=== PATIENT | female | born 1995 | race Caucasian/White ===

== ENCOUNTER 2021-08-03 12:12 | Emergency (ER) | payer SELFPAY ==
[2021-08-03] MEDS ORDERED: Alum Hydro/Mag Hydro/Simeth XS 15 ML, Metoclopramide 5 MG, Lidocaine 2% 5 ML PO ONE ×3 (12:32)
[2021-08-03] MEDS ORDERED: Sodium Chloride 0.9% 1,000 ML IV ONE (12:32)
[2021-08-03] MEDS ORDERED: Pantoprazole 80 MG in Sodium Chloride 0.9% 20 ML IVPUSH ONE (12:32)
[2021-08-03] MEDS ORDERED: Ondansetron 4 MG/2 ML SDV IVPUSH ONE (12:32)
--- NOTE | 2021-08-03 12:40 | EDM.PDOC ---
ED HPI GENERAL MEDICAL PROBLEM - General Chief Complaint: Abdominal Pain Stated Complaint: STOMACH PAIN Time Seen by Provider: 08/03/21 12:13 Source of Information: Reports: Patient History Limitations: Reports: No Limitations - History of Present Illness INITIAL COMMENTS - FREE TEXT/NARRATIVE: HISTORY AND PHYSICAL: History of present illness: Patient is an otherwise healthy 26-year-old female presents emergency room today with concern of upper abdominal pain, nausea, abdominal bloating/heartburn, and too numerous to count episodes of watery diarrhea since yesterday. Patient states that she did have Covid 19 on July 09 and states that she was placed on doxycycline at that time. Patient states that yesterday she began having significant upper abdominal pain surrounded by abdominal bloating and heartburn. Patient states starting today, she began having too numerous to count episodes of watery diarrhea and states that she has not been able to make it to the bathroom due to urgency of her diarrhea. Patient states that her diarrhea is more yellow in color and foul-smelling but denies any blood. Patient states that she began feeling dehydrated today and states that she did try drinking Pedialyte but feels like she cannot keep up with the amount of diarrhea she is having. Patient states that she did take a dose of ibuprofen last night at about 1 AM but has not taken any additional medication. Patient states that she does have an IUD so does not believe to be . Patient denies fever, chills, chest pain, shortness of breath, or cough. Denies headache, neck stiff ness, change in vision, syncope, or near syncope. Denies vomiting, or dysuria. Has not noted any blood in urine or stool. Patient has been eating and drinking appropriately. Review of systems: As per history of present illness and below otherwise all systems reviewed and negative. Past medical history: As per history of present illness and as reviewed below otherwise noncontri butory. Surgical history: As per history of present illness and as reviewed below otherwise noncontributory. Social history: See social history for further information Family history: As per history of present illness and as reviewed below otherwise noncontributory. Physical exam: General: Patient is alert, oriented, and in no acute distress. Patient laying comfortably on exam table. Patient is tachycardic 115's on exam, otherwise vitally stable and reviewed by me. HEENT: Atraumatic, normocephalic, pupils equal and reactive bilaterally, negative for conjunctival pallor or scleral icterus, mucous membranes moist, throat clear, neck supple, nontender, trachea midline. No drooling or trismus noted. No meningeal signs. No hot potato voice noted. Lungs: Clear to auscultation, breath sounds equal bilaterally, chest nontender. Heart: S1S2, regular rate and rhythm without overt murmur Abdomen: Soft, nondistended, nontender. Negative for masses or hepatosplenomegaly. Negative for costovertebral tenderness. Pelvis: Stable nontender. Genitourinary: Deferred. Rectal: Deferred. Skin: Intact, warm, dry. No lesions or rashes noted. Extremities: Atraumatic, negative for cords or calf pain. Neurovascular unremarkable. Neuro: Awake, alert, oriented. Cranial nerves II through XII unremarkable. Cerebellum unremarkable. Motor and sensory unremarkable throughout. Exam nonfocal. Medical Decision Making: Patient is an otherwise healthy 26-year-old female presents emergency room today with concern of upper abdominal pain, diarrhea, heartburn, and bloating since yesterday. Upon arrival to the ED, patient is tachycardic 115's on exam, otherwise vitally stable. Will obtain IV access, obtain basic lab work, hCG, provide NS bolus and reassess patient. Mild derangements of lab work today unremarkable. hCG negative. Urinalysis clear for infection. C. difficile toxin negative. Remainder of stool studies pending at this time. Abdominal pelvic CT scan shows no acute findings. All incidental findings today of imaging discussed with patient. Patient's mild tachycardia did improve to 80 bpm prior to therapeutics given today in the emergency room. Reevaluation of patient, she remains vitally stable and comfortable throughout stay in ED. Strict return precautions thoroughly discussed with patient. Discussed importance for follow-up with a primary care provider. Voices understanding and is agreeable to plan of care. Denies any further questions or concerns at this time. Diagnostics: CBC, CMP, UA, lipase, serum hcg, Abd/Pelvic CT w cont, Ova & Parasite, Cdiff, stool culture / shiga Therapeutics: NS, Zofran, GI cocktail, Protonix Prescription: None Impression: Diarrhea Abdominal pain, epigastric Plan: 1. Encourage small but frequent sips of fluid to prevent dehydration. 2. You can alternate ibuprofen and Tylenol as directed for pain and discomfort. 3. Follow-up with a primary care provider as discussed. Return to the ED as needed and as discussed. Definitive disposition and diagnosis as appropriate pending reevaluation and review of above. Treatments GAS SYSTEM OPERATOR: Reports: NSAIDS, Other (see below) Other Treatments GAS SYSTEM OPERATOR: ibuprofen at 0100 abdomen Pain Score (Numeric/FACES): 8 - Related Data Allergies Allergy/AdvReac Type Severity Reaction Status Date / Time Penicillins Allergy Shortness Verified 08/03/21 12:20 of Breath Home Meds: Home Meds . [No Known Home Meds] 08/03/21 [History] Past Medical History HEENT History: Reports: None Cardiovascular History: Reports: None Respiratory History: Reports: None Gastrointestinal History: Reports: None Genitourinary History: Reports: None FIRE PATROLLER History: Reports: None Musculoskeletal History: Reports: None Neurological History: Reports: None Psychiatric History: Reports: None Endocrine/Metabolic History: Reports: Other (See Below) Other Endocrine/Metabolic History: prediabetic Hematologic History: Reports: None Immunologic History: Reports: None Oncologic (Cancer) History: Reports: None Dermatologic History: Reports: None - Infectious Disease History Infectious Disease History: Reports: None - Past Surgical History Head Surgeries/Procedures: Reports: None HEENT Surgical History: Reports: Tonsillectomy Social & Family History - Family History Family Medical History: No Pertinent Family History - Tobacco Use Tobacco Use Status *Q: Former Tobacco User Used Tobacco, but Quit: Yes Month/Year Tobacco Last Used: 07/09/21 - Caffeine Use Caffeine Use: Reports: None - Recreational Drug Use Recreational Drug Use: No ED ROS GENERAL - Review of Systems Review Of Systems: Comprehensive ROS is negative, except as noted in HPI. ED EXAM, GENERAL - Physical Exam Exam: See Below (see dictation) Course - Vital Signs Last Recorded V/S: Last Vital Signs Temp 98.1 F 08/03/21 14:23 Pulse 99 08/03/21 14:23 Resp 16 08/03/21 14:23 BP 89/62 L 08/03/21 14:23 Pulse Ox 98 08/03/21 14:23 - Orders/Labs/Meds Orders: Active Orders 24 hr Category Date Time Status OVA & PARASITES BY IMMUNOASSAY [MREF] Stat Lab 08/03/21 13:10 Received STOOL CULTURE/SHIGA TOXIN [MREF] Stat Lab 08/03/21 13:10 Received Labs: Laboratory Tests 08/03/21 08/03/21 08/03/21 Range/Units 12:40 12:40 12:40 WBC 9.90 (4.0-11.0) K/uL RBC 4.57 (4.30-5.90) M/uL Hgb 14.2 (12.0-16.0) g/dL Hct 41.8 (36.0-46.0) % MCV 91.5 (80.0-98.0) fL MCH 31.1 (27.0-32.0) pg MCHC 34.0 (31.0-37.0) g/dL RDW Std Deviation 42.0 (28.0-62.0) fl RDW Coeff of Kathy 13 (11.0-15.0) % Plt Count 285 (150-400) K/uL MPV 10.80 (7.40-12.00) fL Neut % (Auto) 81.1 H (48.0-80.0) % Lymph % (Auto) 8.0 L (16.0-40.0) % Conway % (Auto) 9.7 (0.0-15.0) % Eos % (Auto) 1.1 (0.0-7.0) % Baso % (Auto) 0.1 (0.0-1.5) % Neut # (Auto) 8.0 H (1.4-5.7) K/uL Lymph # (Auto) 0.8 (0.6-2.4) K/uL Conway # (Auto) 1.0 H (0.0-0.8) K/uL Eos # (Auto) 0.1 (0.0-0.7) K/uL Baso # (Auto) 0.0 (0.0-0.1) K/uL Nucleated RBC % 0.0 /100WBC Nucleated RBCs # 0 K/uL Sodium 137 (136-145) mmol/L Potassium 4.0 (3.5-5.1) mmol/L Chloride 100 (98-107) mmol/L Carbon Dioxide 25.2 (21.0-32.0) mmol/L BUN 7 (7.0-18.0) mg/dL Creatinine 0.7 (0.6-1.0) mg/dL Est Cr Clr Drug Dosing 118.43 mL/min Estimated GFR (MDRD) > 60.0 ml/min Glucose 117 H (74-106) mg/dL Calcium 9.0 (8.5-10.1) mg/dL Total Bilirubin 0.7 (0.2-1.0) mg/dL AST 21 (15-37) IU/L ALT 38 (14-63) IU/L Alkaline Phosphatase 94 (46-116) U/L Total Protein 7.9 (6.4-8.2) g/dL Albumin 3.1 L (3.4-5.0) g/dL Globulin 4.8 H (2.6-4.0) g/dL Albumin/Globulin Ratio 0.7 L (0.9-1.6) Lipase 69 L (73-393) U/L HCG, Qual NEGATIVE (NEG) Urine Color Urine Appearance Urine pH (5.0-8.0) Ur Specific Lockhart (1.001-1.035) Urine Protein (NEGATIVE) mg/dL Urine Glucose (UA) (NEGATIVE) mg/dL Urine Ketones (NEGATIVE) mg/dL Urine Occult Blood (NEGATIVE) Urine Nitrite (NEGATIVE) Urine Bilirubin (NEGATIVE) Urine Urobilinogen (<2.0) EU/dL Ur Leukocyte Esterase (NEGATIVE) 08/03/21 Range/Units 13:10 WBC (4.0-11.0) K/uL RBC (4.30-5.90) M/uL Hgb (12.0-16.0) g/dL Hct (36.0-46.0) % MCV (80.0-98.0) fL MCH (27.0-32.0) pg MCHC (31.0-37.0) g/dL RDW Std Deviation (28.0-62.0) fl RDW Coeff of Kathy (11.0-15.0) % Plt Count (150-400) K/uL MPV (7.40-12.00) fL Neut % (Auto) (48.0-80.0) % Lymph % (Auto) (16.0-40.0) % Conway % (Auto) (0.0-15.0) % Eos % (Auto) (0.0-7.0) % Baso % (Auto) (0.0-1.5) % Neut # (Auto) (1.4-5.7) K/uL Lymph # (Auto) (0.6-2.4) K/uL Conway # (Auto) (0.0-0.8) K/uL Eos # (Auto) (0.0-0.7) K/uL Baso # (Auto) (0.0-0.1) K/uL Nucleated RBC % /100WBC Nucleated RBCs # K/uL Sodium (136-145) mmol/L Potassium (3.5-5.1) mmol/L Chloride (98-107) mmol/L Carbon Dioxide (21.0-32.0) mmol/L BUN (7.0-18.0) mg/dL Creatinine (0.6-1.0) mg/dL Est Cr Clr Drug Dosing mL/min Estimated GFR (MDRD) ml/min Glucose (74-106) mg/dL Calcium (8.5-10.1) mg/dL Total Bilirubin (0.2-1.0) mg/dL AST (15-37) IU/L ALT (14-63) IU/L Alkaline Phosphatase (46-116) U/L Total Protein (6.4-8.2) g/dL Albumin (3.4-5.0) g/dL Globulin (2.6-4.0) g/dL Albumin/Globulin Ratio (0.9-1.6) Lipase (73-393) U/L HCG, Qual (NEG) Urine Color YELLOW Urine Appearance CLEAR Urine pH 5.5 (5.0-8.0) Ur Specific Lockhart 1.025 (1.001-1.035) Urine Protein NEGATIVE (NEGATIVE) mg/dL Urine Glucose (UA) NEGATIVE (NEGATIVE) mg/dL Urine Ketones NEGATIVE (NEGATIVE) mg/dL Urine Occult Blood NEGATIVE (NEGATIVE) Urine Nitrite NEGATIVE (NEGATIVE) Urine Bilirubin NEGATIVE (NEGATIVE) Urine Urobilinogen 0.2 (<2.0) EU/dL Ur Leukocyte Esterase NEGATIVE (NEGATIVE) Meds: Medications Discontinued Medications Generic Name Dose Route Start Last Admin Trade Name Freq PRN Reason Stop Dose Admin Alum Lima/Mag Lima/Simeth XS 0 ml 08/03/21 12:32 08/03/21 12:45 15 ml/ Metoclopramide HCl 5 PO 08/03/21 12:33 1 each mg/ Lidocaine HCl 5 ml ONETIME ONE Administration Sodium Chloride 1,000 mls @ 999 mls/hr 08/03/21 12:32 08/03/21 12:44 Normal Saline IV 08/03/21 13:32 999 mls/hr BOLUS ONE Administration Pantoprazole Sodium 80 mg/ 20 mls @ 420 mls/hr 08/03/21 12:32 08/03/21 12:45 Sodium Chloride IVPUSH 08/03/21 12:34 420 mls/hr ONETIME ONE Administration Iopamidol 100 ml 08/03/21 13:45 08/03/21 13:50 Iopamidol 755 Mg/Ml 500 Ml Multipack Bottle IVPUSH 08/03/21 13:46 100 ml ONETIME STA Administration Ondansetron HCl 4 mg 08/03/21 12:32 08/03/21 12:45 Ondansetron 4 Mg/2 Ml Sdv IVPUSH 08/03/21 12:33 4 mg ONETIME ONE Administration Departure - Departure Time of Disposition: 14:18 Disposition: Home, Self-Care 01 Clinical Impression: Diarrhea Qualifiers: Diarrhea type: unspecified type Qualified Code(s): R19.7 - Diarrhea, unspecified Abdominal pain Qualifiers: Abdominal location: epigastric Qualified Code(s): R10.13 - Epigastric pain - Discharge Information Instructions: Dehydration, Adult, [id number], Diarrhea, Adult, [id number] Referrals: Leo Buitrago MD [Primary Care Provider] - Forms: ED Department Discharge Additional Instructions: The following information is given to patients seen in the emergency department who are being discharged to home. This information is to outline your options for follow-up care. We provide all patients seen in our emergency department with a follow-up referral. The need for follow-up, as well as the timing and circumstances, are variable depending upon the specifics of your emergency department visit. If you don't have a primary care physician on staff, we will provide you with a referral. We always advise you to contact your personal physician following an emergency department visit to inform them of the circumstance of the visit and for follow-up with them and/or the need for any referrals to a consulting specialist. The emergency department will also refer you to a specialist when appropriate. This referral assures that you have the opportunity for follow-up care with a specialist. All of these measure are taken in an effort to provide you with optimal care, which includes your follow-up. Under all circumstances we always encourage you to contact your private physician who remains a resource for coordinating your care. When calling for follow-up care, please make the office aware that this follow-up is from your recent emergency room visit. If for any reason you are refused follow-up, please contact the [facility] Emergency Department at and asked to speak to the emergency department charge nurse. [facility] [address] [place] [id number] [facility] [address] [place] [id number] 1. Encourage small but frequent sips of fluid to prevent dehydration. 2. You can alternate ibuprofen and Tylenol as directed for pain and discomfort. 3. Follow-up with a primary care provider as discussed. Return to the ED as needed and as discussed. Sepsis Event Note (ED) - Evaluation Sepsis Screening Result: No Definite Risk - Focused Exam Vital Signs: Vital Signs Temp Pulse Resp BP Pulse Ox 08/03/21 14:23 98.1 F 99 16 89/62 L 98 08/03/21 13:23 92 16 102/63 98 08/03/21 12:21 98.3 F 112 H 16 105/78 95 - My Orders Last 24 Hours: My Active Orders 08/03/21 13:10 OVA & PARASITES BY IMMUNOASSAY [MREF] Stat STOOL CULTURE/SHIGA TOXIN [MREF] Stat - Assessment/Plan Last 24 Hours: My Active Orders 08/03/21 13:10 OVA & PARASITES BY IMMUNOASSAY [MREF] Stat STOOL CULTURE/SHIGA TOXIN [MREF] Stat
[2021-08-03 13:14] LABS: BLOOD UREA NITROGEN,BUN 7 mg/dL (7.0-18.0); CARBON DIOXIDE,CO2 25.2 mmol/L (21.0-32.0); CHLORIDE,CL 100 mmol/L (98-107); GLUCOSE RANDOM 117 mg/dL (74-106); LIPASE 69 U/L (73-393); SODIUM,NA 137 mmol/L (136-145)
[2021-08-03] MEDS ORDERED: Iopamidol 755 MG/ML 500 ML Multipack Bottle IVPUSH STA (13:45)
--- NOTE | 2021-08-03 14:14 | CT ---
Indication: Upper abdominal pain. Technique: Multiple contiguous axial images were obtained from the thoracic inlet through the upper abdomen after the intravenous administration 100 cc Isovue 370. Please note that all CT scans at this facility use dose modulation, iterative reconstruction, and/or weight-based dosing when appropriate to reduce radiation dose to as low as reasonably achievable. Comparison: None Findings: Scar atelectasis is identified in the lingula, right middle lobe, anterior aspect of the right lower lobe. The heart is normal in size. No pericardial effusion is identified. The liver, gallbladder, spleen, pancreas, adrenals, and kidneys are normal. No intrahepatic biliary ductal dilatation is identified. No hydronephrosis is identified. In the pelvis, an IUD is identified within the uterus. The bladder is normal. The small and large bowel are normal in caliber. No free fluid or free air is identified within the abdomen or pelvis. The aorta is normal in caliber. No free fluid or free air is identified within the abdomen or pelvis. No lytic or blastic lesions of the spine are identified. Impression: No acute findings. Please note that all CT scans at this facility use dose modulation, iterative reconstruction, and/or weight-based dosing when appropriate to reduce radiation dose to as low as reasonably achievable. Dictated by Gail Ash MD @ 08/03/2021 2:12:57 PM (Electronically Signed)
== END 2021-08-03 14:26 | disposition home or self-care (01) ==
LOC: MW.ED 12:12
DX: R10.13 Epigastric pain (principal); R19.7 Diarrhea, unspecified; Z88.0 Allergy status to penicillin; Z86.16 Personal history of COVID-19; Z87.891 Personal history of nicotine dependence
CPT/HCPCS: 36415; 74177; 80053; 81003; 83690; 84703; 85025; 87045; 87046; 87324; 87328; 87329; 87449; 87899; 96374; 96375; 99284; A9270; C9113; J2405; J7030; Q9967

== ENCOUNTER 2021-10-12 10:07 | Emergency (ER) | payer BC ==
--- NOTE | 2021-10-12 10:22 | EDM.PDOC ---
ED HPI GENERAL MEDICAL PROBLEM - General Chief Complaint: Lower Extremity Injury/Pain Stated Complaint: R ANKLE PAIN Time Seen by Provider: 10/12/21 10:10 - History of Present Illness INITIAL COMMENTS - FREE TEXT/NARRATIVE: History of present illness: [] About 5 AM the patient got up to go to the bathroom and twisted her right ankle. She said it gave out. She has pain in the lateral right ankle. It is 9/10 in severity of sharp pain when she moves it. When she does not move it it is better. It happened a year ago and she never came for x-ray or further evaluation. It got better on its own. Patient denies any other injury. She denies . Review of systems: As per history of present illness and below otherwise all systems reviewed and negative. Past medical history: As per history of present illness and as reviewed below otherwise noncontributory. Surgical history: As per history of present illness and as reviewed below otherwise noncontributory. Social history: No reported history of drug or alcohol abuse. Family history: As per history of present illness and as reviewed below otherwise noncontributory. Physical exam: Constitutional - well developed, well-nourished and in no acute distress HEENT - normocephalic, no evidence of trauma - external nose and mouth normal - no mass in neck and no JVD - mucosae moist EYES - full EOM, PERRL, no icterus - no evidence of inflammation, injection, or drainage Respiratory - no respiratory distress, equal bilateral expansion Vascular-capillary refill intact in the distal right lower extremity. Musculoskeletal tender right lateral malleolus and right lateral ankle ligaments. Otherwise no gross deformity of long bones or joints - no tenderness, swelling or edema Neurologic - Alert and oriented times four - CN II-XII grossly intact - motor sensory and coordination symmetrically normal Psychiatric - appropriate mood and affect with normal thought content Hematologic - No petechiae or purpura - mucosa appropriate color and sclera not pale - normal nail bed color and refill Integument - no rash or evidence of trauma - normal turgor Diagnostics: [] Therapeutics: [] Impression: [] Plan: [] Definitive disposition and diagnosis as appropriate pending reevaluation and review of above. right ankle Pain Score (Numeric/FACES): 8 - Related Data Allergies Allergy/AdvReac Type Severity Reaction Status Date / Time Penicillins Allergy Shortness Verified 10/12/21 10:15 of Breath Home Meds: Home Meds . [No Known Home Meds] 08/03/21 [History] Past Medical History HEENT History: Reports: None Cardiovascular History: Reports: None Respiratory History: Reports: None Gastrointestinal History: Reports: None Genitourinary History: Reports: None DOCUMENT COORDINATOR History: Reports: None Musculoskeletal History: Reports: None Neurological History: Reports: None Psychiatric History: Reports: None Endocrine/Metabolic History: Reports: Other (See Below) Other Endocrine/Metabolic History: prediabetic Hematologic History: Reports: None Immunologic History: Reports: None Oncologic (Cancer) History: Reports: None Dermatologic History: Reports: None - Infectious Disease History Infectious Disease History: Reports: None - Past Surgical History Head Surgeries/Procedures: Reports: None HEENT Surgical History: Reports: Tonsillectomy Social & Family History - Family History Family Medical History: No Pertinent Family History - Caffeine Use Caffeine Use: Reports: None Review of Systems - Review of Systems Review Of Systems: Comprehensive ROS is negative, except as noted in HPI. ED EXAM, GENERAL - Physical Exam Exam: See Below Free Text/Narrative:: My physical exam is in the HPI Course - Vital Signs Text/Narrative:: DME for discharge walking boot ordered for 1 week to prevent further ankle ligament damage because of the sprain of the right ankle Last Recorded V/S: Last Vital Signs Temp 36.4 C 10/12/21 10:16 Pulse 112 H 10/12/21 10:16 Resp 16 10/12/21 10:16 BP 111/78 10/12/21 10:16 Pulse Ox 96 10/12/21 10:16 - Orders/Labs/Meds Orders: Active Orders 24 hr Category Date Time Status Ankle Min 3V Rt [CR] Stat Exams 10/12/21 10:20 Taken DME for Discharge [COMM] Stat Oth 10/12/21 10:49 Ordered Departure - Departure Time of Disposition: 10:50 Disposition: Home, Self-Care 01 Condition: Good Clinical Impression: Sprain of unspecified ligament of right ankle, initial encounter - Discharge Information Instructions: Ankle Sprain, [id number] Forms: ED Department Discharge Additional Instructions: Rest ice elevate. Return if worse. [facility] Professional Building [address] [place] [address], [address] [place] [id number] The following information is given to patients seen in the emergency department who are being discharged to home. This information is to outline your options for follow-up care. We provide all patients seen in our emergency department with a follow-up referral. The need for follow-up, as well as the timing and circumstances, are variable depending upon the specifics of your emergency department visit. If you don't have a primary care physician on staff, we will provide you with a referral. We always advise you to contact your personal physician following an emergency department visit to inform them of the circumstance of the visit and for follow-up with them and/or the need for any referrals to a consulting specialist. The emergency department will also refer you to a specialist when appropriate. This referral assures that you have the opportunity for follow-up care with a specialist. All of these measure are taken in an effort to provide you with optimal care, which includes your follow-up. Under all circumstances we always encourage you to contact your private physician who remains a resource for coordinating your care. When calling for follow-up care, please make the office aware that this follow-up is from your recent emergency room visit. If for any reason you are refused follow-up, please contact the [facility] Emergency Department at and asked to speak to the emergency department charge nurse. Sepsis Event Note (ED) - Evaluation Sepsis Screening Result: No Definite Risk - Focused Exam Vital Signs: Vital Signs Temp Pulse Resp BP Pulse Ox 10/12/21 10:16 36.4 C 112 H 16 111/78 96 - My Orders Last 24 Hours: My Active Orders 10/12/21 10:20 Ankle Min 3V Rt [CR] Stat 10/12/21 10:49 DME for Discharge [COMM] Stat - Assessment/Plan Last 24 Hours: My Active Orders 10/12/21 10:20 Ankle Min 3V Rt [CR] Stat 10/12/21 10:49 DME for Discharge [COMM] Stat
--- NOTE | 2021-10-12 10:54 | CR ---
INDICATION: Right ankle pain. TECHNIQUE: Three views of the right ankle. COMPARISON: None. FINDINGS: No soft tissue swelling, fracture, joint space narrowing or other abnormality. IMPRESSION: Negative right ankle. Dictated by Torsten Aguirre MD @ 10/12/2021 10:54:21 AM (Electronically Signed)
== END 2021-10-12 11:25 | disposition home or self-care (01) ==
LOC: MW.ED 10:07
DX: S93.401A Sprain of unspecified ligament of right ankle, initial encounter (principal); Z88.0 Allergy status to penicillin; X50.1XXA Overexertion from prolonged static or awkward postures, initial encounter
CPT/HCPCS: 73610-26-RT; 73610-RT; 99283-25

== ENCOUNTER 2022-08-09 22:22 | Emergency (ER) | payer BC | END 2022-08-10 00:33 | disposition home or self-care (01) | LOC: MW.ED 22:22 | DX: R10.31 Right lower quadrant pain (principal); Z88.0 Allergy status to penicillin; Z79.899 Other long term (current) drug therapy | CPT/HCPCS: 74176; 74176-26; 81001; 81025; 99284 ==